=== PATIENT | male | born 1975 | race Caucasian/White ===

== ENCOUNTER 2017-02-17 12:11 | Outpatient (CLI) | payer OTHER ==
--- NOTE | 2017-02-19 12:11 | OP Clinic Progress Note ---
REASON FOR VISIT: This is a 41-year-old male who was seen accompanied by his . He complains of "vertigo." His contributes some of the history. The patient is a little slow to respond but contributes some of the history in addition. He walks slowly but he is not weaving. There is no active nystagmus. The history is that over at least 3 years he has had some episodic vertigo. It usually happens when he wakes at night. He does tend to chew most food on the right side. He does a lot of physical work and he gets a tight neck. 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 He does have some noise trauma. He has used guns and shooting with more noise in the right ear than the left. He has a mild hearing loss clinically. He denies much tinnitus. He does have some rhinosinusitis, nasal congestion and stuffiness. He takes an antihistamine. Recently, he has taken Valium 5 mg once or twice a day. He has fairly significant fatigue. Both eardrums and ear canals are clear. There is no middle ear fluid. No cholesteatoma. Both eardrums are moderately retracted. PLAN: I have given him his options. There is no other obvious neurologic deficit. Also, he states that he has had a CT at [facility] and also had an MRI in the past. Although, it seems as if he may well have some benign positional vertigo, it is not clear whether it is right or left side. I would also comment that the patient is not particularly severely vertiginous turning to the right or left side. He does not tend to sleep a lot on one side or the other. The patient opted to try an Fozia. I turned the patient from his left shoulder face down to the right shoulder face down. There was no severe vertigo in doing that. Also, the patient does have a tender occiput on both the right and left side, maybe slightly more on the left side than the right, on palpation for nuchal rigidity. Plan also for him to have some physical therapy for the patient's neck. I also discussed the possibility of doing a myringotomy. The patient, at least initially, was for no large surgery. He understands that would be a fairly simple outpatient type of procedure done in the clinic with less than 1% chance that a small perforation would not heal. I will see the patient back in about 2 weeks. Physical therapy will arranged for his neck. cc: Dr. Xavi LANTIGUA
== END 2017-02-17 12:12 ==
LOC: ENT 12:11
PROVIDERS: ATTEND Otolaryngology
DX: H81.49 Vertigo of central origin, unspecified ear (principal)
CPT/HCPCS: G0463